=== PATIENT | male | born 1945 | race Caucasian/White ===

== ENCOUNTER 2017-04-26 20:09 | Emergency (ER) | payer MEDICARE, OTHER ==
[~2017-04-26] VITALS: Ht 157.5 cm; Wt 59.0 kg
[2017-04-26] MEDS ORDERED: SERT50TA12 PO (20:26)
[2017-04-26] MEDS ORDERED: DONE10TA PO (20:26)
[2017-04-26 21:43] VITALS: BP 122/68
== END 2017-04-26 22:06 | disposition home or self-care (01) ==
LOC: EMS 20:13
DX: S20.411A Abrasion of right back wall of thorax, initial encounter (principal); W06.XXXA Fall from bed, initial encounter; Y93.89 Activity, other specified; Y92.89 Other specified places as the place of occurrence of the external cause; Y99.8 Other external cause status
CPT/HCPCS: 70450; 72125; 99284